=== PATIENT | female | born 1975 | race Caucasian/White ===

== ENCOUNTER 2019-10-16 17:54 | Emergency (ER) | payer OTHER ==
[~2019-10-16] VITALS: Ht 160 cm; Wt 57.2 kg
[~2019-10-16 17:54] MED LIST: AMOXIL500 MG PO; BIRTH CONTROL1 EAC1 PO; FLONASE 0.05% 121 EA NAS; PHENERGAN W/ DE30 ML PO; PREDNICOT10 MG PO
== END 2019-10-16 18:32 | disposition home or self-care (01) ==
LOC: ED 17:54
DX: S61.011A Laceration without foreign body of right thumb without damage to nail, initial encounter (principal); Z79.899 Other long term (current) drug therapy; W45.8XXA Other foreign body or object entering through skin, initial encounter; Y93.89 Activity, other specified; Y92.89 Other specified places as the place of occurrence of the external cause; Y99.8 Other external cause status